=== PATIENT | male | born 2000 | race Caucasian/White ===

== ENCOUNTER → 2023-06-18 | Outpatient (CLI) | payer OTHER ==
--- NOTE | 2023-06-18 15:14 | XR ---
EXAMINATION TYPE: XR chest 2V DATE OF EXAM: 06/18/2023 COMPARISON: None HISTORY: 23-year-old male flight physical. R91.8CCH TECHNIQUE: PA and lateral views FINDINGS: The cardiomediastinal silhouette, aorta, and pulmonary vasculature are within normal limits. Lungs an d pleural spaces are clear. IMPRESSION: No acute cardiopulmonary process.
== END | disposition home or self-care (01) ==
LOC: RADXRMAIN 14:38
PROVIDERS: ATTEND Family Medicine
DX: R91.8 Other nonspecific abnormal finding of lung field (principal)
CPT/HCPCS: 71046